=== PATIENT | female | born 1935 | race Caucasian/White ===

== ENCOUNTER 2022-03-09 13:08 | Observation (INO) ==
[2022-03-09 14:03] LABS: ABS Basophils 0.1 10^3/ul (0-0.2); ABS Eosinophils 0.1 10^3/ul (0-0.6); ABS Lymphocytes 1.1 10^3/ul (1.0-4.8); ABS Monocytes 0.4 10^3/ul (0-0.8); ABS Neutrophils 2.8 10^3/ul (1.5-7.7); Eosinophil % 1.8 %; Hematocrit 36 % (35-47); Hemoglobin 11.9 g/dL (12.0-16.0); Lymphocyte % 24.5 %; Mean Corpuscular HGB Conc 33 g/dL (31-36); Mean Corpuscular Hemoglobin 28 pg (27-31); Mean Corpuscular Volume 86 fL (80-97); Mean Platelet Volume 8.1 fL (7.4-10.4); Platelet Count 244 10^3/uL (150-450); Red Blood Count 4.21 10^6 /uL (3.70-4.87); Red Cell Distribution Width 15 % (10-15); White Blood Count 4.4 10^3/uL (3.5-10.8)
[2022-03-09 14:44] LABS: Albumin/Globulin Ratio 1.8 (1-3); Calcium 9.3 mg/dL (8.6-10.3); Globulin 2.2 g/dL (2-4); Potassium 4.6 mmol/L (3.5-5.0); Total Bilirubin 0.4 mg/dL (0.2-1.0); Total Protein 6.2 g/dL (6.4-8.9); eGFR CKD-EPI 77.2 (>60)
[2022-03-09 15:19] LABS: High Sensitivity Troponin 1 Hr 7 pg/mL (<15)
[2022-03-09] MEDS ORDERED: Enoxaparin 40 MG/0.4 ML SYR SUBCUT SCH (18:00)
[2022-03-09] MEDS: Aspirin EC 81 mg TAB.EC (enteric coated) PO SCH (19:45)
[2022-03-09] MEDS: prednisoLONE 1% OPHTH.SUSP 5 ML OPHTH.SUSP LEFT EYE SCH (23:16)
[2022-03-10] MEDS: prednisoLONE 1% OPHTH.SUSP 5 ML OPHTH.SUSP LEFT EYE SCH ×4 (00:32→12:04)
[2022-03-10 05:18] LABS: ABS Eosinophils 0.2 10^3/ul (0-0.6); ABS Lymphocytes 1.2 10^3/ul (1.0-4.8); ABS Monocytes 0.3 10^3/ul (0-0.8); ABS Neutrophils 2.1 10^3/ul (1.5-7.7); Eosinophil % 5.1 %; Hematocrit 33 % (35-47); Hemoglobin 10.9 g/dL (12.0-16.0); Lymphocyte % 30.5 %; Mean Corpuscular HGB Conc 34 g/dL (31-36); Mean Corpuscular Hemoglobin 29 pg (27-31); Mean Corpuscular Volume 87 fL (80-97); Mean Platelet Volume 7.5 fL (7.4-10.4); Platelet Count 223 10^3/uL (150-450); Red Blood Count 3.74 10^6 /uL (3.70-4.87); Red Cell Distribution Width 15 % (10-15); White Blood Count 3.9 10^3/uL (3.5-10.8)
[2022-03-10 06:06] LABS: Calcium 8.7 mg/dL (8.6-10.3); Potassium 4.1 mmol/L (3.5-5.0); eGFR CKD-EPI 86.1 (>60)
[2022-03-10 06:18] LABS: TSH Ultra Thyroid Stim Horm 1.93 mcIU/mL (0.34-5.60)
[2022-03-10] MEDS: Aspirin EC 81 mg TAB.EC (enteric coated) PO SCH (07:54)
[2022-03-10] MEDS ORDERED: Meloxicam 7.5 mg TAB (NF) PO SCH (09:00)
[2022-03-10] MEDS ORDERED: Cholecalciferol (VIT D3) 1,000 unit TAB PO SCH (09:00)
[2022-03-10 12:09] VITALS: BP 167/86
== END 2022-03-10 12:30 | disposition home or self-care (01) ==
LOC: EDHOLD 13:08 → ED 13:08 → SUATTDRO 18:04 → EDHOLD 20:07 → MEDTELE 21:00
PROVIDERS: ADMIT Nurse Practitioner Family; ATTEND Family Medicine